=== PATIENT | female | born 1990 | race Caucasian/White ===

== ENCOUNTER 2017-11-28 10:16 | Emergency (ER) | payer OTHER ==
[~2017-11-28] VITALS: Ht 167.6 cm; Wt 66.7 kg
[2017-11-28] MEDS ORDERED: BACTRIM 400-801 EACH PO (10:48)
== END 2017-11-28 15:24 | disposition home or self-care (01) ==
LOC: ER 10:16
DX: K52.9 Noninfective gastroenteritis and colitis, unspecified (principal)